=== PATIENT | female | born 1970 | race African-American/Black ===

== ENCOUNTER 2016-09-01 13:59 | Emergency (ER) | payer BC, OTHER ==
[~2016-09-01] VITALS: Ht 165.1 cm; Wt 75.9 kg
[~2016-09-01 13:59] MED LIST: COUG100S2 PO
[2016-09-01 14:00] VITALS: BP 160/86; PULSE 95; RESP 20; TEMP 98.7; O2SAT 100
--- NOTE | 2016-09-01 14:52 | PD ---
Physical Exam Time Seen by Provider: 14:51 Narrative 46 y/o female here with left sided abdominal pain for the past few days. Sharp , intermittent. Denies n/v/d/c, dysuria, fevers/chills, sob. vss Seen at triage desk. Awaiting bed placement. Data Data Last Documented VS Vital Signs Date Time Temp Pulse Resp B/P Pulse Ox O2 Delivery O2 Flow Rate FiO2 09/01/16 14:00 98.7 95 20 160/86 100 Room Air [facility] Medical Record Reviewed: Yes Supervised Visit with MILAD: Camron Arnett September 01, 2016 14:52
[2016-09-01] MEDS ORDERED: SODIUM CHLORIDE 0.9% FLUSH 10 ML FLUSH IV FLUSH PRN (18:45)
[2016-09-01] MEDS ORDERED: KETOROLAC TROMETHAMINE 30 MG/ML (IVP) VIAL IVP ONE (18:45)
--- NOTE | 2016-09-01 18:46 | PD ---
HPI Chief Complaint: Abdominal Pain Time Seen by Provider: 18:41 Travel History International Travel<30 days: No Contact w/Intl Traveler<30days: No Traveled to known affect area: No History of Present Illness HPI Patient is a 46-year-old female presenting to the emergency room for evaluation of left upper quadrant abdominal pain and right flank pain. Pain started this weekend, she denies any nausea, vomiting, diarrhea, appetite disturbance, dysuria. She does report that her menstrual cycles have been off for the last several months, she states that they've been surgical garment fitter than normal and less frequent. Patient states the pain is a dull ache, it comes and goes it is improved when she lays flat or stands up and it's worsened by sitting. Patient does not have a primary care provider. Patient endorsed daily tobacco use, occasional alcohol use. PFSH Past Medical History Medical History: Denies Significant Hx Arthritis: No Asthma: No Autoimmune Disease: No Blood Disorders: No Heart Rhythm Problems: No Cancer: No Cardiovascular Problems: No High Cholesterol: No Chemotherapy: No Chest Pain: No Congestive Heart Failure: No COPD: No Cerebrovascular Accident: No Diabetes: No Endocrine: No GERD: No Glaucoma: No Genitourinary: No Headaches: No Hepatitis: No Hiatal Hernia: No Hypertension: No Immune Disorder: No Kidney Stones: No Musculoskeletal: No Neurologic: No Psychiatric: No Reproductive: No Respiratory: No Myocardial Infarction: No Radiation Therapy: No Renal Failure: No Seizures: No Sickle Cell Disease: No Sleep Apnea: No Thyroid Disease: No Ulcer: No Past Surgical History Abdominal Surgery: No AICD: No Arteriovenous Shunt: No Cardiac Surgery: No Ear Surgery: No Endocrine Surgery: No Eye Surgery: No Genitourinary Surgery: No Gynecologic Surgery: Yes (BTL) Insulin Pump: No Joint Replacement: No Oral Surgery: No Pacemaker: No Thoracic Surgery: No Social History Alcohol Use: Yes (1 BEER OCCASIONALLY) Tobacco Use: Yes (1/2 PACK CIGARETTES PER DAY) Substance Use: No Allergies-Medications (Allergen,Severity, Reaction): Coded Allergies: No Known Allergies (Unverified , 09/01/16) Reported Meds & Prescriptions Reported Meds & Active Scripts Active No Active Prescriptions or Reported Medications Review of Systems Except as stated in HPI: all other systems reviewed are Neg General / Constitutional: No: Fever, Chills Cardiovascular: No: Chest Pain or Discomfort Respiratory: No: Shortness of Breath Gastrointestinal: Positive: Abdominal Pain, No: Nausea, Vomiting, Diarrhea, Changes in Bowel Habits, Indigestion, Loss of Appetite Genitourinary: No: Dysuria Physical Exam Narrative GENERAL: Well-developed, well-nourished, alert female. Resting comfortably in no acute distress. SKIN: Warm and dry. HEAD: Atraumatic. Normocephalic. EYES: Pupils equal and round. No scleral icterus. No injection or drainage. ENT: No nasal bleeding or discharge. Mucous membranes pink and moist. NECK: Trachea midline. No JVD. CARDIOVASCULAR: Regular rate and rhythm. RESPIRATORY: No accessory muscle use. Clear to auscultation. Breath sounds equal bilaterally. GASTROINTESTINAL: Abdomen soft, non-tender, nondistended. Hepatic and splenic margins not palpable. Positive bowel sounds, no rebound, no guarding. No CVAT bilaterally. MUSCULOSKELETAL: Extremities without clubbing, cyanosis, or edema. No obvious deformities. NEUROLOGICAL: Awake and alert. No obvious cranial nerve deficits. Motor grossly within normal limits. Five out of 5 muscle strength in the arms and legs. Normal speech. PSYCHIATRIC: Appropriate mood and affect; insight and judgment normal. Data Data Last Documented VS Vital Signs Date Time Temp Pulse Resp B/P Pulse Ox O2 Delivery O2 Flow Rate FiO2 09/01/16 23:40 98.1 70 18 141/84 100 Room Air Orders Complete Blood Count With Diff (09/01/16 18:32) Comprehensive Metabolic Panel (09/01/16 18:32) Lipase (09/01/16 18:32) Urinalysis - C+S If Indicated (09/01/16 18:32) Iv Access Insert/Monitor (09/01/16 18:32) Oximetry (09/01/16 18:32) Sodium Chloride 0.9% Flush (Ns Flush) (09/01/16 18:45) Ketorolac Inj (Toradol Inj) (09/01/16 18:45) Ed Urine Pregnancytest Poc (09/01/16 18:32) Ct Abd/Pel W/O Iv Contrast (09/01/16 ) Labs Laboratory Tests Test 09/01/16 19:30 White Blood Count 11.5 TH/MM3 Red Blood Count 4.37 MIL/MM3 Hemoglobin 9.3 GM/DL Hematocrit 31.1 % Mean Corpuscular Volume 71.1 FL Mean Corpuscular Hemoglobin 21.4 PG Mean Corpuscular Hemoglobin 30.0 % Concent Red Cell Distribution Width 20.8 % Platelet Count 516 TH/MM3 Mean Platelet Volume 9.0 FL Neutrophils (%) (Auto) 55.3 % Lymphocytes (%) (Auto) 34.3 % Monocytes (%) (Auto) 7.8 % Eosinophils (%) (Auto) 1.6 % Basophils (%) (Auto) 1.0 % Neutrophils # (Auto) 6.4 TH/MM3 Lymphocytes # (Auto) 3.9 TH/MM3 Monocytes # (Auto) 0.9 TH/MM3 Eosinophils # (Auto) 0.2 TH/MM3 Basophils # (Auto) 0.1 TH/MM3 CBC Comment AUTO DIFF Differential Comment AUTO DIFF CONFIRMED Toxic Vacuolation PRESENT Platelet Estimate HIGH Platelet Morphology Comment ENLARGED Tear Drop Cells 1+ Ovalocytes 1+ Keratocytes OCC Urine Color YELLOW Urine Turbidity CLEAR Urine pH 5.5 Urine Specific [place] 1.020 Urine Protein NEG mg/dL Urine Glucose (UA) NEG mg/dL Urine Ketones NEG mg/dL Urine Occult Blood TRACE Urine Nitrite NEG Urine Bilirubin NEG Urine Urobilinogen LESS THAN 2.0 MG/DL Urine Leukocyte Esterase NEG Urine RBC 1 /hpf Urine WBC LESS THAN 1 /hpf Urine Squamous Epithelial 1 /hpf Cells Urine Mucus FEW /lpf Microscopic Urinalysis Comment CULT NOT INDICATED Sodium Level 138 MEQ/L Potassium Level 5.8 MEQ/L Chloride Level 107 MEQ/L Carbon Dioxide Level 22.6 MEQ/L Anion Gap 8 MEQ/L Blood Urea Nitrogen 13 MG/DL Creatinine 0.72 MG/DL Estimat Glomerular Filtration 105 ML/MIN Rate Random Glucose 81 MG/DL Calcium Level 8.6 MG/DL Total Bilirubin 0.4 MG/DL Aspartate Amino Transf 63 U/L (AST/SGOT) Alanine Aminotransferase 22 U/L (ALT/SGPT) Alkaline Phosphatase 82 U/L Total Protein 7.6 GM/DL Albumin 3.5 GM/DL Lipase 120 U/L MDM Medical Decision Making Medical Screen Exam Complete: Yes Emergency Medical Condition: Yes Interpretation(s) Vital Signs Date Time Temp Pulse Resp B/P Pulse Ox O2 Delivery O2 Flow Rate FiO2 09/01/16 14:00 98.7 95 20 160/86 100 Room Air Differential Diagnosis Kidney stone versus pancreatitis versus cholecystitis versus muscle strain versus pleurisy versus spasm versus other Narrative Course Patient is a 46-year-old female presenting to emergency for evaluation of left upper quadrant abdominal pain. Abdominal exam is benign. Labs and imaging were ordered and pending. Patient's vital signs are stable. CT scan of the abdomen and pelvis shows no acute abnormality, a 10 mm low- density lesion of the liver nonspecific but likely benign. And a fibroid uterus. CBC with white count 11.5, no left shift, patient is mildly anemic with a hemoglobin of 9.3/31.1. Urinalysis is unremarkable Patient given Toradol for pain. Chemistry is pending. Care of patient transferred to my attending physician who will determine patient 's disposition at the end of my shift. Scripts No Active Prescriptions or Reported Meds Leonarda Titus September 01, 2016 18:46
[2016-09-01 19:50] VITALS: BP 150/91; PULSE 62; RESP 16; O2SAT 100
[2016-09-01 20:02] LABS: AUTOMATED NEUTROPHIL # 6.4 TH/MM3 (1.8-7.7); BASOPHIL # 0.1 TH/MM3 (0-0.2); EOSINOPHIL # 0.2 TH/MM3 (0-0.4); EOSINOPHIL % 1.6 % (0.0-4.0); HEMATOCRIT 31.1 % (35.0-46.0); LYMPH % 34.3 % (9.0-44.0); LYMPHOCYTE # 3.9 TH/MM3 (1.0-4.8); MEAN CELL VOLUME 71.1 FL (80.0-100.0); MEAN CORPUSCULAR HEMOGLOBIN 21.4 PG (27.0-34.0); MONO % 7.8 % (0.0-8.0); NEUT % 55.3 % (16.0-70.0); PLATELET COUNT 516 TH/MM3 (150-450); RED BLOOD COUNT 4.37 MIL/MM3 (4.00-5.30); RED CELL DISTRIBUTION WIDTH 20.8 % (11.6-17.2); WHITE BLOOD COUNT 11.5 TH/MM3 (4.0-11.0)
[2016-09-01 20:11] LABS: BLOOD, URINE TRACE (NEG); GLUCOSE,URINE NEG (NEG); KETONE, URINE NEG (NEG); MUCUS URINE FEW /lpf (OCC); NITRITE,URINE NEG (NEG); PH, URINE 5.5 (5.0-8.5); SQUAMOUS EPITHELIAL CELL URINE 1 /hpf (0-5); URINE COLOR YELLOW (YELLW/STRAW)
[2016-09-01 20:12] LABS: HEMO FLAGS AUTO DIFF
[2016-09-01 20:15] LABS: COMMENT (UR) CULT NOT INDICATED; CULTURE IF INDICATED CULT NOT INDICATED
--- NOTE | 2016-09-01 20:18 | RADRPT ---
EXAM DATE/TIME: 09/01/2016 19:59 [facility] COMPARISON: No previous studies available for comparison. INDICATIONS : Left sided abdominal pain x3 days. ORAL CONTRAST: No oral contrast ingested. RADIATION DOSE: 9.96 CTDIvol (mGy) MEDICAL HISTORY : None SURGICAL HISTORY : Tubal ligation. ENCOUNTER: Initial ACUITY: 3 days PAIN SCALE: 6/10 LOCATION: Left abdomen TECHNIQUE: Volumetric scanning of the abdomen and pelvis was performed. Using automated exposure control and ad justment of the mA and/or kV according to patient size, radiation dose was kept as low as reasonably achievable to obtain optimal diagnostic quality images. FINDINGS: LOWER LUNGS: The visualized lower lungs are clear. LIVER: 10 mm nonspecific hypodensity seen in the posterior segment of the right hepatic lobe. Noncontrast ap pearance of the liver otherwise within normal limits. CT appearance of the gallbladder also appears n ormal. SPLEEN: Normal size without lesion. PANCREAS: Within normal limits. KIDNEYS: Normal in size and shape. There is no mass, stone, or hydronephrosis. ADRENAL GLANDS: Within normal limits. VASCULAR: There is no aortic aneurysm. BOWEL/MESENTERY: The stomach, small bowel, and colon demonstrate no acute abnormality. There is no free intraperitone al air or fluid. The appendix is well-visualized and normal. ABDOMINAL WALL: Within normal limits. RETROPERITONEUM: There is no lymphadenopathy. BLADDER: No wall thickening or mass. REPRODUCTIVE: Adnexal regions are within normal limits. There is an enlarged fibroid uterus. Multiple fibroids up t o 4.6 cm. INGUINAL: There is no lymphadenopathy or hernia. MUSCULOSKELETAL: No acute bony abnormality demonstrated. CONCLUSION: Noncontrast study. 1. No acute abnormality demonstrated. 2. 10 mm low density lesion of the liver, nonspecific but most likely benign. 3. Fibroid uterus. Yan Collier MD on September 01, 2016 at 20:12 Board Certified Radiologist. This report was verified electronically.
[2016-09-01 20:33] LABS: ALKALINE PHOSPHATASE 82 U/L (45-117); ALT (GPT) 22 U/L (10-53); ANION GAP 8 MEQ/L (5-15); AST (GOT) 63 U/L (15-37); BICARBONATE 22.6 MEQ/L (21.0-32.0); BLOOD UREA NITROGEN 13 MG/DL (7-18); CHLORIDE 107 MEQ/L (98-107); GLOMERULAR FILTRATION RATE 105 ML/MIN (>89); SODIUM (NA) 138 MEQ/L (136-145); TOTAL BILIRUBIN ADULT 0.4 MG/DL (0.2-1.0)
[2016-09-01 20:55] LABS: POTASSIUM 5.8 MEQ/L (3.5-5.1)
--- NOTE | 2016-09-01 21:08 | PD ---
Physical Exam Date Seen by Provider: September 01, 2016 Time Seen by Provider: 21:01 Data Data Last Documented VS Vital Signs Date Time Temp Pulse Resp B/P Pulse Ox O2 Delivery O2 Flow Rate FiO2 09/01/16 20:00 16 09/01/16 19:50 62 150/91 100 Room Air 09/01/16 14:00 98.7 Orders Complete Blood Count With Diff (09/01/16 18:32) Comprehensive Metabolic Panel (09/01/16 18:32) Lipase (09/01/16 18:32) Urinalysis - C+S If Indicated (09/01/16 18:32) Iv Access Insert/Monitor (09/01/16 18:32) Oximetry (09/01/16 18:32) Sodium Chloride 0.9% Flush (Ns Flush) (09/01/16 18:45) Ketorolac Inj (Toradol Inj) (09/01/16 18:45) Ed Urine Pregnancytest Poc (09/01/16 18:32) Ct Abd/Pel W/O Iv Contrast (09/01/16 ) Labs Laboratory Tests Test 09/01/16 19:30 White Blood Count 11.5 TH/MM3 Red Blood Count 4.37 MIL/MM3 Hemoglobin 9.3 GM/DL Hematocrit 31.1 % Mean Corpuscular Volume 71.1 FL Mean Corpuscular Hemoglobin 21.4 PG Mean Corpuscular Hemoglobin 30.0 % Concent Red Cell Distribution Width 20.8 % Platelet Count 516 TH/MM3 Mean Platelet Volume 9.0 FL Neutrophils (%) (Auto) 55.3 % Lymphocytes (%) (Auto) 34.3 % Monocytes (%) (Auto) 7.8 % Eosinophils (%) (Auto) 1.6 % Basophils (%) (Auto) 1.0 % Neutrophils # (Auto) 6.4 TH/MM3 Lymphocytes # (Auto) 3.9 TH/MM3 Monocytes # (Auto) 0.9 TH/MM3 Eosinophils # (Auto) 0.2 TH/MM3 Basophils # (Auto) 0.1 TH/MM3 CBC Comment AUTO DIFF Differential Comment AUTO DIFF CONFIRMED Toxic Vacuolation PRESENT Platelet Estimate HIGH Platelet Morphology Comment ENLARGED Tear Drop Cells 1+ Ovalocytes 1+ Keratocytes OCC Urine Color YELLOW Urine Turbidity CLEAR Urine pH 5.5 Urine Specific [place] 1.020 Urine Protein NEG mg/dL Urine Glucose (UA) NEG mg/dL Urine Ketones NEG mg/dL Urine Occult Blood TRACE Urine Nitrite NEG Urine Bilirubin NEG Urine Urobilinogen LESS THAN 2.0 MG/DL Urine Leukocyte Esterase NEG Urine RBC 1 /hpf Urine WBC LESS THAN 1 /hpf Urine Squamous Epithelial 1 /hpf Cells Urine Mucus FEW /lpf Microscopic Urinalysis Comment CULT NOT INDICATED Sodium Level 138 MEQ/L Potassium Level 5.8 MEQ/L Chloride Level 107 MEQ/L Carbon Dioxide Level 22.6 MEQ/L Anion Gap 8 MEQ/L Blood Urea Nitrogen 13 MG/DL Creatinine 0.72 MG/DL Estimat Glomerular Filtration 105 ML/MIN Rate Random Glucose 81 MG/DL Calcium Level 8.6 MG/DL Total Bilirubin 0.4 MG/DL Aspartate Amino Transf 63 U/L (AST/SGOT) Alanine Aminotransferase 22 U/L (ALT/SGPT) Alkaline Phosphatase 82 U/L Total Protein 7.6 GM/DL Albumin 3.5 GM/DL Lipase 120 U/L MDM Supervised Visit with MILAD: No Narrative Course Patient was initially seen by FAUSTO Arias. Please see her note for full H &P. Briefly this is a 46-year-old female who presents to the ED for evaluation of abdominal pain. She was administered Toradol and chemistries were pending when the patient was signed out to me. CBC: CBC 11.4. Hemoglobin 9.3. CMP: Potassium 5.8. Otherwise unremarkable Lipase: 120 UA: No culture indicated UPT: negative CT of the abdomen: 1. No abdominal abnormality demonstrated. To 10 mm low- density lesion of the liver, nonspecific, likely benign. 3. Fibroid uterus. I discussed the results of the work up with the patient. I feel she is safe for outpatient follow up with the PCP. She was provided a copy of the CT and outpatient resource of the [facility]. She indicated understanding of the instructions and is agreeable to the care plan. She is stable and discharged home. Diagnosis Primary Impression: Abdominal pain Qualified Code: R10.9 - Abdominal pain, unspecified location Referrals: Primary Care Physician Patient Instructions: Abdominal Pain (ED), General Instructions Additional Instruction: Rest, hydrate. Return to normal, gentle activity as tolerated. Follow-up with the [facility] for further evaluation. Return to the ED for worsening of symptoms or any urgent or emergent medical condition. Scripts No Active Prescriptions or Reported Meds Disposition: DISCHARGE HOME Condition: Stable Allyson Mcdonough September 01, 2016 21:08
[2016-09-01 21:51] LABS: OVALOCYTES 1+ (NORMAL); PLATELET ESTIMATE SMEAR HIGH (NORMAL); PLATELET MORPHOLOGY ENLARGED (NORMAL); TOXIC VACUOLATION PRESENT (NONE SEEN)
[2016-09-01 21:52] LABS: KERATOCYTES OCC (NORMAL); TEARDROP RBCS 1+ (NORMAL)
[2016-09-01 21:53] LABS: SCAN/DIFF AUTO DIFF CONFIRMED
[2016-09-01 22:17] VITALS: BP 133/75; PULSE 64; RESP 16; O2SAT 100
[2016-09-01 23:40] VITALS: BP 141/84; PULSE 70; RESP 18; TEMP 98.1; O2SAT 100
== END 2016-09-02 00:37 | disposition home or self-care (01) ==
LOC: NEPD 13:59
DX: R10.12 Left upper quadrant pain (principal); F17.210 Nicotine dependence, cigarettes, uncomplicated
CPT/HCPCS: 74176; 80053; 81001; 83690; 84703; 85025; 96374; 99284; J1885